=== PATIENT | female | born 1935 | race Caucasian/White ===

== ENCOUNTER 2016-07-04 21:16 | Emergency (ER) | payer MEDICARE, OTHER ==
[~2016-07-04 21:16] MED LIST: ASA5GR PO; ASAB PO; BENADRYL 50 MG50 MG PO; CARDU2 PO; CARTIA XT180 MG/24 PO; CAT1 PO; CYANO1000T PO; DCN100 PO; DEPO-ESTRADIO1 MG/ML IM; FLAX SEED PO; FLEX PO; HYGROTON 25 MG25 MG OR; HYGROTON 25 MG25 MG PO; KLOR-CON 1010 MEQ PO; L40 PO; L5 PO; LEVOTHYROXIN75 MCG PO; LOP50 PO; LORT7 PO; LORTAB 5 PO; LORTAB10 PO; MAGOX4 PO; MEDROL PO; MEDROL32 MG PO; METAMUCIL CAN7 OZ PO; METPAKSF PO; NIACOR500 MG PO; NORV5 PO; PEP20 PO; PLAVIX PO; PROTONIX PO; SUCR PO; SYN.15 PO; SYN075 PO; TRAN200 PO; VANCOCIN HCL250 MG PO; VIT B1 PO; VITAMIN D31000 UNIT PO
[2016-07-04 21:27] LABS: BASOPHILS 0.7 %; BASOPHILS ABSOLUTE 0.05 10/3/uL (0.0-0.16); EOSINOPHILS 14.5 %; EOSINOPHILS ABSOLUTE 0.99 10/3/uL (0.0-0.53); HEMATOCRIT 41.1 % (36.0-48.0); HEMOGLOBIN 13.9 g/dL (12.0-16.0); IMMATURE GRANULOCYTES 0.3 %; IMMATURE GRANULOCYTES ABSOLUTE 0.02 10/3/uL (0.0-0.11); LYMPHOCYTES 21.9 %; LYMPHOCYTES ABSOLUTE 1.49 10/3/uL (0.67-4.30); MANUAL DIFF NO %; MEAN CORPUS HGB CONC 33.8 g/dL (32.0-36.0); MEAN CORPUSCULAR HEMOGLOB 29.4 pg (26.0-34.0); MEAN CORPUSCULAR VOLUME 87.1 fL (80-100); MEAN PLATELET VOLUME 9.7 fL (9.2-13.0); MONOCYTES 8.5 %; MONOCYTES ABSOLUTE 0.58 10/3/uL (0.21-1.20); NEUTROPHILS 54.1 %; NEUTROPHILS ABSOLUTE 3.68 10/3/uL (2.02-8.40); PLATELET COUNT 261 10/3/uL (150-400); RED CELL COUNT 4.72 10/6/uL (4.0-5.6); WHITE BLOOD CELLS 6.8 10/3/uL (4.5-10.5)
[2016-07-04 21:35] LABS: PARTIAL THROMBO TIME 25.6 SEC (22.5-37.2)
[2016-07-04 21:44] LABS: CALCIUM, SERUM 8.8 MG/DL (8.5-10.4); CHEST PAIN PROFILE TAT 0 Hrs 23 Mins; CHLORIDE, SERUM 104 MMOL/L (96-112); CO2 (CARBON DIOXIDE) 30 MMOL/L (24-34); CREATININE 0.96 MG/DL (0.55-1.02); GFR AFRICAN AMERICAN 65 ML/MIN (>=60); GFR NON AFRICAN AMERICAN 56 ML/MIN (>=60); GLUCOSE, SERUM 107 MG/DL (60-99); SODIUM, SERUM 139 MMOL/L (135-148); TROPONIN I <0.02 NG/ML (<0.05)
[2016-07-04 21:45] LABS: BUN (BLOOD UREA NITROGEN) 7 MG/DL (6-23)
== END 2016-07-04 23:03 | disposition home or self-care (01) ==
LOC: ER 21:16
PROVIDERS: Specialist
DX: R05 Cough (principal); R60.0 Localized edema; R06.00 Dyspnea, unspecified; R06.2 Wheezing; I12.9 Hypertensive chronic kidney disease with stage 1 through stage 4 chronic kidney disease, or unspecified chronic kidney disease; N18.9 Chronic kidney disease, unspecified; E07.9 Disorder of thyroid, unspecified; Z90.49 Acquired absence of other specified parts of digestive tract; Z87.891 Personal history of nicotine dependence; Z88.0 Allergy status to penicillin; Z88.1 Allergy status to other antibiotic agents; Z88.5 Allergy status to narcotic agent; Z88.8 Allergy status to other drugs, medicaments and biological substances; Z79.82 Long term (current) use of aspirin; Z79.02 Long term (current) use of antithrombotics/antiplatelets; Z79.899 Other long term (current) drug therapy
CPT/HCPCS: 71010; 80048; 83735; 83880; 84484; 85025; 85610; 85730; 87040; 93005; 99284; A9270-GY